=== PATIENT | male | born 1990 | race African-American/Black ===

== ENCOUNTER 2021-01-02 20:09 | Emergency (ER) | payer SELFPAY ==
[~2021-01-02] VITALS: Ht 175.3 cm; Wt 68.5 kg
[2021-01-02] MEDS ORDERED: MECLIZINE HCL 12.5 MG TAB PO STA (20:31)
[2021-01-02] MEDS ORDERED: MECLIZINE HCL 12.5 MG TAB ONE (21:12)
[2021-01-02] MEDS ORDERED: MECLIZINE HCL25 MG PO (21:13)
[2021-01-02] MEDS ORDERED: MECLIZINE HCL12.5 MG PO (21:14)
[2021-01-02 21:25] VITALS: BP 121/74
== END 2021-01-02 21:25 | disposition home or self-care (01) ==
LOC: FSED 20:25
DX: S09.90XA Unspecified injury of head, initial encounter (principal); R42 Dizziness and giddiness; W06.XXXA Fall from bed, initial encounter; Y92.013 Bedroom of single-family (private) house as the place of occurrence of the external cause
CPT/HCPCS: 70450; 93005; 99283; J8597